=== PATIENT | female | born 1960 | race African-American/Black ===

== ENCOUNTER 2018-12-30 15:27 | Emergency (ER) | payer MEDICARE, OTHER ==
[2018-12-30] MEDS ORDERED: ACETAMINOPHEN 325 MG TABLET PO ONE (17:22)
--- NOTE | 2018-12-30 17:55 | RADIOLOGY REPORT (SQ) ---
EXAM DESCRIPTION: CT HEAD WITHOUT COMPLETED DATE/TIME: 12/30/2018 5:46 pm REASON FOR STUDY: pole fell on left parietal region COMPARISON: None. TECHNIQUE: Axial images acquired through the brain without intravenous contrast. Images reviewed wi th bone, brain and subdural windows. Additional sagittal and coronal reconstructions were generated. Images stored on PACS. All CT scanners at this facility use dose modulation, iterative reconstruction, and/or weight based d osing when appropriate to reduce radiation dose to as low as reasonably achievable (ALARA). [facility]: Dose Right [facility]: CareDose [facility]: Dose Right [facility]: Teradose 4D [facility]: Smart [employer] RADIATION DOSE: CT Rad equipment meets quality standard of care and radiation dose reduction techniq ues were employed. CTDIvol: 53.2 mGy. DLP: 1017 mGy-cm. mGy. LIMITATIONS: None. FINDINGS: VENTRICLES: Normal size and contour. CEREBRUM: No masses. No hemorrhage. No midline shift. No evidence for acute infarction. Normal gra y/white matter differentiation. No areas of low density in the white matter. CEREBELLUM: No masses. No hemorrhage. No alteration of density. No evidence for acute infarction. EXTRAAXIAL SPACES: No fluid collections. No masses. ORBITS AND GLOBE: No intra- or extraconal masses. Normal contour of globe without masses. CALVARIUM: No fracture. PARANASAL SINUSES: No fluid or mucosal thickening. SOFT TISSUES: No mass or hematoma. OTHER: No other significant finding. IMPRESSION: NORMAL BRAIN CT WITHOUT CONTRAST. EVIDENCE OF ACUTE STROKE: NO. COMMENT: Quality ID # [id number]: Final reports with documentation of one or more dose reduction techniques (e.g., Automated exposure control, adjustment of the mA and/or kV according to patient size, use of iterative reconstruction technique) TECHNICAL DOCUMENTATION: JOB ID: [id number] [employer]- All Rights Reserved Reading location - IP/workstation name: [email or web address]
--- NOTE | 2018-12-30 17:57 | RADIOLOGY REPORT (SQ) ---
EXAM DESCRIPTION: CT CERVICAL SPINE WITHOUT COMPLETED DATE/TIME: 12/30/2018 5:46 pm REASON FOR STUDY: pole fell on left parietal region COMPARISON: None. TECHNIQUE: Axial images acquired through the cervical spine without intravenous contrast. Images re viewed with lung, soft tissue and bone windows. Reconstructed coronal and sagittal MPR images review ed. Images stored on PACS. All CT scanners at this facility use dose modulation, iterative reconstruction, and/or weight based d osing when appropriate to reduce radiation dose to as low as reasonably achievable (ALARA). [facility]: Dose Right [facility]: CareDose [facility]: Dose Right [facility]: Teradose 4D [facility]: Smart [employer] RADIATION DOSE: CT Rad equipment meets quality standard of care and radiation dose reduction techniq ues were employed. CTDIvol: 20.6 mGy. DLP: 462 mGy-cm. mGy. LIMITATIONS: None. FINDINGS: ALIGNMENT: Anatomic. MINERALIZATION: Normal. VERTEBRAL BODIES: No fractures or dislocation. DISCS: No significant disc disease. FACETS, LATERAL MASSES, POSTERIOR ELEMENTS: No fractures. No dislocation. No acute findings. HARDWARE: None in the spine. VISUALIZED RIBS: No fractures. LUNG APICES AND SOFT TISSUES: No significant or acute findings. OTHER: No other significant finding. IMPRESSION: NO ACUTE OR SIGNIFICANT FINDINGS IN THE CERVICAL SPINE. TECHNICAL DOCUMENTATION: JOB ID: [id number] Quality ID # [id number]: Final reports with documentation of one or more dose reduction techniques (e.g., Au tomated exposure control, adjustment of the mA and/or kV according to patient size, use of iterative reconstruction technique) 2010 [email or web address]- All Rights Reserved Reading location - IP/workstation name: [email or web address]
--- NOTE | 2018-12-30 18:17 | ER Document Report ---
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 no vomiting. acting appropriate since. pt states she was at a high school reunion and outside under a large tent when one of the metal poles holding up the tent spontaneosly fell and hit her on the left frontolateral portion of her head. last TDAP was < 5yrs ago. no preceding injury sx. no pain anywhere else. no ams. no change in neurologic. no spinal surgeries. no blood thinners. no other recent head injury. pt able to walk. no seizures. no incontinence. denies intoxication. denies . hasn't taken anything for her sx and would like something for the pain. No other complaints at this time. Similar symptoms previously: No Recently seen / treated by doctor: No - ROS Systems Reviewed and Negative: Yes All other systems reviewed and negative - to include 10, unless mentioned in the hpi Past Medical History - General Information source: Patient, Relative - Social History Smoking Status: Unknown if Ever Smoked Frequency of alcohol use: unknown Drug Abuse: Other - unknown Family History: Reviewed & Not Pertinent Patient has suicidal ideation: No Patient has homicidal ideation: No - Past Medical History Cardiac Medical History: Reports: Hx Hypertension Endocrine Medical History: Denies: Hx Diabetes Mellitus Type 1, Hx Diabetes Mellitus Type 2 GI Medical History: Reports: Hx Gastroesophageal Reflux Disease, Hx Irritable Bowel Musculoskeletal Medical History: Reports Other - chronic left ankle sprain. in walking boot currently Past Surgical History: Reports: Hx Orthopedic Surgery - left ankle ligamentous tear/injury. currently in walking boot - Immunizations Immunizations up to date: Yes Vertical Provider Document - CONSTITUTIONAL Notes: GENERAL_APPEARANCE: well_nourished, alert, cooperative, no obvious discomfort. Pleasant, obese middle aged black female, smiling, speaking in full sentences, in no sign of pain or resp distress, easily sitting up. family at bedside VITALS: reviewed, see vital signs table. HEAD: normocephalic and atraumatic, no raccoon eyes, no ayala signs. no swelling or ttp. EARS: canals_clear_bilat, TMs_clear, no_discharge_from_ears. no hemotympanum EYES: EOMI without pain, conjunctiva_clear. PERRL, eyelids wnl. no drainage. no ttp or crepitation of the orbits. no sign of orbital/periorbital cellulitis. no hyphema. no nystagmus MOUTH: no_lacerations inside_mouth. no broken teeth. no tmj clicking or ttp. pharynx wnl. tongue protrudes midline. no drooling, tripoding, voice change, or stridor, no thrush or oral lesions. no tongue or lip swelling. NOSE: no drainage or epistaxis NECK: no_swelling on the neck. no midline bony tenderness. no step offs or deformities. mild ttp of bilat paracervical musculature. spasm noted. no overlying skin changes. full rom. full strength. no meningeal signs. no sign of central cord syndrome. HEART: normal_rate, normal_rhythm, LUNGS: ctab. no chest wall ttp. no overlying skin changes. no flail chest or crepitation. ABDOMEN: normal_BS, soft, no_abd_tenderness, no rebound, guarding, distension, or peritoneal signs. no cva ttp. no overlying skin changes. BACK: no midline bony tenderness. no step offs or deformities RECTAL: deferred, however, no sign of loss of bowel or bladder or soiling of clothing. EXTREMITIES: strength 5/5 in all_extremities unless otherwise noted, good pulses all_extremities, no_abrasions\lacerations in the extremities, no_swelling\tenderness in the extremities unless otherwise noted. full rom unless otherwise noted. slight antalgic gait as pt has a chronic left foot injury and wears a walking boot and is followed closely by ortho/pod for this so rom of that foot not assessed and walking boot not removed as pt denies any new complaints or concerns there. good hand environmental engineer. brisk cap refill. no shortening or rotation of the limbs or other signs of deformities unless otherwise noted. SKIN: warm, dry, good_color. no other grossly visible overlying skin changes or signs of trauma unless otherwise noted. NEURO: reflexes symmetric throughout, cranial nerves 2 - 12 intact, motor_intact, sensory_intact. cerebellar function intact GLASCOW_COMA_SCORE: (adult) - eyes_open_spontaneously_4, verbal_converses_and_oriented_5, motor_obeys_commands_6, glasgow_coma_total_15, MENTAL_STATUS: speech_clear, oriented_X_3, responds_appropriately to questions. - INFECTION CONTROL TRAVEL OUTSIDE OF THE [place] IN LAST 30 DAYS: No Course - Re-evaluation Re-evalutation: 12/30/18 18:12 pt here for sierra and mild closed head injury without loc. ct head and neck neg per rad and reviewed by myself. pt informed of her findings. improved with tylenol here. advised may have a concussion. advised sx care. tylenol for any pain. cool compresses to the area. advised of second hit syndrome and to avoid any activity where they could hit their head again until cleared by pcp. pt advised to follow up with pcp in the next 1-2 days or return to the ed with any worsening symptoms. pt understands and agrees to plan. vss. afebrile. well appearing, satting well on ra. neurononfocal. brain rest. gave concussion precautions. no sign of central cord syndrome or spinal cord involvement. On reexam, pt improved with tx listed. remained stable. nontoxic. well appearing. pain controlled. tolerating po. requesting to go home. remained neurononfocal. Documentation achieved through voice recording which my lead to some occasional accidental typographical errors. Extensive efforts have been made to proof read documentation to make sure these are the least as possible. Category Date Time Status Vital Signs (ED) ONCE Care 12/30/18 18:[address] CERVICAL SPINE WITHOUT [CT] Stat Exams 12/30/18 17:[address] HEAD WITHOUT [CT] Stat Exams 12/30/18 17:20 Completed Acetaminophen [Tylenol 325 mg Tablet] Med 12/30/18 17:22 Discontinued 975 mg PO NOW ONE - Vital Signs Vital signs: Temp Pulse Resp BP Pulse Ox 98.5 F 81 16 156/116 H 96 12/30/18 15:39 12/30/18 15:39 12/30/18 15:39 12/30/18 15:39 12/30/18 15:39 Temp Pulse Pulse Resp BP BP Pulse Ox 12/30/18 18:39 98.1 F 74 18 163/103 H 100 12/30/18 15:39 98.5 F 81 16 156/116 H 96 - Diagnostic Test Radiology reviewed: Image reviewed, Reports reviewed Radiology results interpreted by me: Cervical Spine CT 12/30/18 17:20 IMPRESSION: NO ACUTE OR SIGNIFICANT FINDINGS IN THE CERVICAL SPINE. Head CT 12/30/18 17:20 IMPRESSION: NORMAL BRAIN CT WITHOUT CONTRAST. EVIDENCE OF ACUTE STROKE: NO. Discharge - Discharge Clinical Impression: Neck pain Head injury, closed, without LOC Qualifiers: Encounter type: initial encounter Qualified Code(s): S09.90XA - Unspecified injury of head, initial encounter Head pain Qualifiers: Headache type: unspecified Headache chronicity pattern: unspecified pattern Intractability: not intractable Qualified Code(s): R51 - Headache Condition: Stable Disposition: HOME, SELF-CARE Instructions: Head Injury Precautions ([facility]) Additional Instructions: Follow-up with PCP 1 to 2 days. Return for any worsening symptoms. Avoid any activity where you could hit your head again until cleared by PCP to avoid second hit syndrome as discussed. Tylenol as needed for any pain. Ice to the area. Gentle stretches. Avoid alcohol. avoid bright lights/computers/cell phones. initiate complete brain rest.
[2018-12-30 18:41] VITALS: BP 174/118
== END 2018-12-30 18:45 | disposition home or self-care (01) ==
LOC: ER 15:27
DX: S09.90XA Unspecified injury of head, initial encounter (principal); R51 Headache; M54.2 Cervicalgia; W20.8XXA Other cause of strike by thrown, projected or falling object, initial encounter; I10 Essential (primary) hypertension
CPT/HCPCS: 99283; 70450; 72125; A9270